=== PATIENT | female | born 1970 ===

== ENCOUNTER 2018-08-27 08:49 | Emergency (ER) | payer SELFPAY ==
[2018-08-27 09:10] VITALS: BP 123/63
[2018-08-27 10:34] LABS: Bacteria,Urine 1+ /HPF (Negative); Bilirubin,Urine NEG (Negative); Blood,Urine NEG (Negative); Color,Urine Yellow (Yellow); Mucus,Urine FEW /HPF; Protein,Urine <15 mg/dL mg/dL (Negative); Urobilinogen,Urine < 2.0 mg/dL (<2.0)
== END 2018-08-27 09:50 | disposition left against medical advice (07) ==
LOC: ED 08:49
DX: R07.89 Other chest pain (principal); Z53.21 Procedure and treatment not carried out due to patient leaving prior to being seen by health care provider
CPT/HCPCS: 81001; 93005; 93010